=== PATIENT | male | born 1985 | race Caucasian/White ===

== ENCOUNTER 2018-02-02 10:01 | Emergency (ER) | payer MEDICAID ==
[~2018-02-02] VITALS: Ht 175.3 cm; Wt 79.2 kg
[2018-02-02 10:06] VITALS: BP 143/90
[2018-02-02] MEDS ORDERED: DIAZEPAM 5 MG TABLET PO ONE (11:00)
[2018-02-02] MEDS ORDERED: KETOROLAC 30 MG/1 ML IM ONE (11:00)
[2018-02-02] MEDS ORDERED: DIAZEPAM 5 MG TABLET ONE (11:45)
[2018-02-02] MEDS ORDERED: KETOROLAC 30 MG/1 ML ONE (11:45)
== END 2018-02-02 14:24 | disposition home or self-care (01) ==
LOC: ED 13:44
DX: M51.16 Intervertebral disc disorders with radiculopathy, lumbar region (principal); F17.200 Nicotine dependence, unspecified, uncomplicated; M25.559 Pain in unspecified hip
CPT/HCPCS: 72110; 72148; 96372; 99284; J1885